=== PATIENT | male | born 1970 | race Caucasian/White ===

== ENCOUNTER 2020-09-03 18:27 | Emergency (ER) | payer OTHER ==
[~2020-09-03] VITALS: Ht 172.7 cm; Wt 163.3 kg
[2020-09-03 22:22] VITALS: BP 149/98
== END 2020-09-03 20:40 | disposition home or self-care (01) ==
LOC: ER 18:42
DX: K59.00 Constipation, unspecified (principal); R10.30 Lower abdominal pain, unspecified; M54.9 Dorsalgia, unspecified; I10 Essential (primary) hypertension
CPT/HCPCS: 74018; 99284